=== PATIENT | female | born 1960 | race African-American/Black ===

== ENCOUNTER → 2016-08-15 | Outpatient (CLI) | payer BC | END | disposition home or self-care (01) | LOC: C.PAPS 10:40 | PROVIDERS: ATTEND Obstetrics & Gynecology | DX: Z01.419 Encounter for gynecological examination (general) (routine) without abnormal findings (principal) ==

== ENCOUNTER → 2017-04-22 | Outpatient (CLI) | payer BC ==
[2017-04-22 09:35] LABS: HEMATOCRIT 44.9 % (37-47); MEAN CELL VOLUME 87.4 fL (80-100); MEAN CORPUSCULAR HEMOGLOBIN 30.2 pg (25-34); MEAN CORPUSCULAR HGB CONC 34.5 g/dl (32-36); MEAN PLATELET VOLUME 10.9 fL (7.4-10.4); PLATELET COUNT 193 K/uL (130-400); RED BLOOD COUNT 5.14 M/uL (4.2-5.4); WHITE BLOOD COUNT 4.46 K/uL (4.8-10.8)
[2017-04-22 10:06] LABS: BLOOD UREA NITROGEN 10 mg/dl (7-18); BUN/CREATININE RATIO 17.8 (10-20); CARBON DIOXIDE 29 mmol/L (21-32); CHLORIDE 106 mmol/L (98-107); CHOLESTEROL 228 mg/dl (0-200); CREATININE 0.55 mg/dl (0.60-1.20); GLUCOSE 138 mg/dl (70-99); POTASSIUM 3.8 mmol/L (3.5-5.1); SODIUM 141 mmol/L (136-145); TRIGLYCERIDES 102 mg/dl (0-150); VERY LOW DENSITY LIPOPROT CALC 20 mg/dl
[2017-04-22 10:09] LABS: CHOLESTEROL/HDL RATIO 2.7; HDL CHOLESTEROL 86 mg/dl; LDL CHOLESTEROL CALCULATED 122 mg/dl
[2017-04-22 10:29] LABS: ESTIMATED AVERAGE GLUCOSE 143 mg/dl; HA1C FLAG Normal (Normal)
== END | disposition home or self-care (01) ==
LOC: C.LAB1850 08:27
PROVIDERS: ATTEND Family Medicine
DX: R73.02 Impaired glucose tolerance (oral) (principal)